=== PATIENT | female | born 1995 | race African-American/Black ===

== ENCOUNTER 2017-07-09 20:18 | Emergency (ER) | payer SELFPAY ==
[~2017-07-09] VITALS: Ht 172.7 cm; Wt 64.0 kg
[2017-07-09 20:40] VITALS: BP 134/72
--- NOTE | 2017-07-09 21:19 | ED.ADGEN ---
Adult General HPI HPI Patient is a 22-year-old woman, with no significant past medical history, who is after a test that was positive at home last week, states her last menstrual period was 02 June, who presents to the emergency department with a complaint of abdominal cramping. Patient states that she noted cramping yesterday, and then again today, states it was worse today, describes it as "delivery tech than a period", and is currently resolved. She denies any bleeding from the vagina, states she has had whitish discharge which began last week, she states that she used one dose of Monistat but continues to have discharge. Denies any gush of fluid, any passage of tissue, states she was last sexually active about a week ago. No concerns for sexually transmitted infections. No history of infection. She denies any urinary complaints, any back or flank pain , states he does have nausea occasionally, but no vomiting, no diarrhea, states the pain is located in her lower abdomen, and she feels a "pressure", in the upper abdomen at times. No swelling of the extremities, no rashes, no travel, recent surgery, history of DVT or PE, or rashes. No sick contacts or exposures. Last bowel movement was today and was normal. She has not yet established care with an [facility], has not yet started vitamins. Review of Systems Review of Systems Constitutional: Denies fever or chills [] Eyes: Denies change in visual acuity, redness, or eye pain [] HENT: Denies nasal congestion or sore throat [] Respiratory: Denies cough or shortness of breath [] Cardiovascular: No additional information not addressed in HPI [] GI: Denies vomiting, bloody stools or diarrhea, complaining of abdominal cramping over the past 2 days, intermittent, with nausea. [] : Denies dysuria or hematuria [] Musculoskeletal: Denies back pain or joint pain [] Integument: Denies rash or skin lesions [] Neurologic: Denies headache, focal weakness or sensory changes [] Endocrine: Denies polyuria or polydipsia [] Current Medications Current Medications Current Medications Medications (Trade) Dose Ordered Sig/Colette Start Time Stop Time Status Last Admin Dose Admin Ondansetron HCl (Zofran) 4 mg 1X ONCE 07/09/17 21:30 07/09/17 21:31 DC 07/09/17 21:30 4 MG Sodium Chloride 1,000 ml @ 1,000 mls/hr Q1H 07/09/17 21:30 07/09/17 22:29 DC 07/09/17 21:30 1,000 MLS/HR Allergies Allergies Allergies Coded Allergies Type Severity Reaction Last Updated Verified No Known Drug Allergies 07/09/17 No Physical Exam Physical Exam Constitutional: Well developed, well nourished, no acute distress, non-toxic appearance. [] HENT: Normocephalic, atraumatic, bilateral external ears normal, oropharynx moist, no oral exudates, nose normal. [] Eyes: PERRLA, EOMI, conjunctiva normal, no discharge. [] Neck: Normal range of motion, no tenderness, supple, no stridor. [] Cardiovascular:Heart rate regular rhythm, no murmur, S1, S2, rubs or gallops. [] Lungs & Thorax: Bilateral breath sounds clear to auscultation, no wheezing, rhonchi, rales. No chest wall crepitus or tenderness. [] Abdomen: Bowel sounds normal, soft, no tenderness, no rebound, rigidity, no guarding, no masses, no pulsatile masses. [] Skin: Warm, dry, no erythema, no rash. [] Back: No tenderness, no CVA tenderness. [] Extremities: No tenderness, no cyanosis, no clubbing, ROM intact, no edema. [] Neurologic: Alert and oriented X 3, normal motor function, normal sensory function, no focal deficits noted. [] Psychologic: Affect normal, judgement normal, mood normal. [] Pelvic examination: Patient with a normal-appearing external examination, bimanual examination reveals a closed os, which is nontender, no CMT, no adnexal tenderness or masses palpated, patient with moderate amount of thick white discharge noted on glove. Speculum examination performed revealing normal cervix, with small amount of white discharge. Specimens taken without issue. Current Patient Data Vital Signs Vital Signs Date Time Temp Pulse Resp B/P (MAP) Pulse Ox O2 Delivery O2 Flow Rate FiO2 07/09/17 20:40 98.2 102 20 100 Room Air Lab Results Laboratory Tests Test 07/09/17 20:40 07/09/17 21:07 07/09/17 21:26 Urine Collection Type Unknown Urine Color Straw Urine Clarity Clear Urine pH 7.0 Urine Specific [place] 1.020 Urine Protein Neg (NEG-TRACE) Urine Glucose (UA) Neg mg/dL (NEG) Urine Ketones (Stick) Neg mg/dL (NEG) Urine Blood Small (NEG) Urine Nitrite Neg (NEG) Urine Bilirubin Neg (NEG) Urine Urobilinogen Dipstick 0.2 mg/dL (0.2 mg/dL) Urine Leukocyte Esterase Neg (NEG) Urine RBC Occ /HPF (0-2) Urine WBC 1-4 /HPF (0-4) Urine Squamous Epithelial Cells Occ /LPF Urine Bacteria Few /HPF (0-FEW) POC Urine HCG, Qualitative hcg positive (Negative) White Blood Count 8.0 x10^3/uL (4.0-11.0) Red Blood Count 4.39 x10^6/uL (3.50-5.40) Hemoglobin 12.4 g/dL (12.0-15.5) Hematocrit 36.8 % (36.0-47.0) Mean Corpuscular Volume 84 fL (79-100) Mean Corpuscular Hemoglobin 28 pg (25-35) Mean Corpuscular Hemoglobin Concent 34 g/dL (31-37) Red Cell Distribution Width 13.1 % (11.5-14.5) Platelet Count 277 x10^3/uL (140-400) Neutrophils (%) (Auto) 67 % (31-73) Lymphocytes (%) (Auto) 27 % (24-48) Monocytes (%) (Auto) 6 % (0-9) Eosinophils (%) (Auto) 0 % (0-3) Basophils (%) (Auto) 1 % (0-3) Neutrophils # (Auto) 5.3 x10^3uL (1.8-7.7) Lymphocytes # (Auto) 2.2 x10^3/uL (1.0-4.8) Monocytes # (Auto) 0.4 x10^3/uL (0.0-1.1) Eosinophils # (Auto) 0.0 x10^3/uL (0.0-0.7) Basophils # (Auto) 0.0 x10^3/uL (0.0-0.2) Maternal Serum HCG Beta Subunit 435 mIU/mL (0-6) H Sodium Level 139 mmol/L (136-145) Potassium Level 3.3 mmol/L (3.5-5.1) L Chloride Level 103 mmol/L (98-107) Carbon Dioxide Level 27 mmol/L (21-32) Anion Gap 9 (6-14) Blood Urea Nitrogen 13 mg/dL (7-20) Creatinine 0.8 mg/dL (0.6-1.0) Estimated GFR (Cockcroft-Gault) 91.4 Glucose Level 89 mg/dL (70-99) Calcium Level 8.9 mg/dL (8.5-10.1) Total Bilirubin 0.3 mg/dL (0.2-1.0) Direct Bilirubin 0.1 mg/dL (0.0-0.2) Aspartate Amino Transferase (AST) 17 U/L (15-37) Alanine Aminotransferase (ALT) 24 U/L (14-59) Alkaline Phosphatase 57 U/L (46-116) Total Protein 8.3 g/dL (6.4-8.2) H Albumin 4.4 g/dL (3.4-5.0) Microbiology 07/09/17 Wet Prep - Final, Complete EKG EKG [] Radiology/Procedures Radiology/Procedures [][place] [id number] IMAGING REPORT Signed PATIENT: LISA TORRES ACCOUNT: [id number] : 1995 LOCATION: ER AGE: 22 SEX: F EXAM STATUS: PRE ER ORD. PHYSICIAN: ANDREEA MULLER DO REASON: Abd pain/ PROCEDURE: OB <14 WKS W/TV Examination: Obstetric ultrasound less than 14 weeks HISTORY: History of abdominal cramping, COMPARISON: None available FINDINGS: The uterus measures 8.8 x 6.9 x 5.4 cm. Endometrium measures 2.2 cm in thickness. The right ovary measures 4.0 x 2.2 x 1.9 cm. The left ovary measures 2.2 x 1.8 x 1.3 cm. Blood flow identified in the right and left ovaries. There is a small follicle or corpus luteal cyst identified in the left ovary. A intrauterine gestational sac is not identified. Small amount of free fluid identified in the pelvis. IMPRESSION: 1. No evidence of intrauterine gestational sac. Differential includes very early , failed first trimester or ectopic . An ectopic gestational sac is not identified. Correlate clinically. Follow-up serial quantitative beta-hCG levels and follow-up ultrasound is recommended. 2. Small amount of free fluid identified in the pelvis. 3. Small follicle or corpus luteal cyst identified in the left ovary. Electronically signed by: Sumit Schwartz MD (07/09/2017 11:41 PM) [facility] DICTATED AND SIGNED BY: SUMIT SCHWARTZ MD DATE: 07/09/17 2561 CC: ANDREEA MULLER DO; PCP,NO ~ Course & Med Decision Making Course & Med Decision Making Pertinent Labs and Imaging studies reviewed. (See chart for details) Due to complaints, laboratory studies, urinalysis, wet prep and ultrasound abdomen obtained. Patient's beta quantitative assay is 435, ultrasound reveals some fluid or cysts, small free fluid, at this time there is no visualized intrauterine , which is consistent with the patient's dates, therefore could be indicative of early which is not visualized, versus potential ectopic. Patient remains comfortable this time, results were discussed with her, importance of follow-up also discussed. Urinalysis reveals a few bacteria, based on patient's present status will treat prophylactically patient to follow-up with [facility], is already taking vitamins as stated. Wet prep is unremarkable. On reevaluation, patient remains asymptomatic resting comfortably. I did discuss beta Quant and ultrasound findings with patient in detail at bedside, also importance of taking vitamins, and antibiotics. Patient understands that this could be early , but also that an ectopic cannot be ruled out at this point. Patient voiced understanding and agreement, to contact Dr. Alba or an [facility] of her choosing on Tuesday to discuss ultrasound and beta quantitative results, to schedule prompt follow-up and expecting care. Patient also given prescription for Zofran to be used as needed. Patient voiced understanding and agreement with all plan and precautions as stated, discharged home in stable condition with significant other with plan as above. Final Impression Final Impression [] Problems: Dragon Disclaimer Dragon Disclaimer This electronic medical record was generated, in whole or in part, using a voice recognition dictation system. Departure: Impression: Primary Impression: Abdominal pain during in first trimester Additional Impression: Bacteriuria during Disposition: HOME, SELF-CARE Condition: IMPROVED Scripts Pnv With Ca,No.72/Iron,Carb/Fa ( PLUS IRON TABLET) 1 Each Tablet 1 TAB PO DAILY, #30 TAB 0 Refills Prov: ANDREEA MULLER DO 07/10/17 Cephalexin (KEFLEX) 500 Mg Capsule 1 CAP PO BID, #14 CAP Prov: ANDREEA MULLER DO 07/10/17 Ondansetron Hcl (ZOFRAN) 4 Mg Tablet 4 MG PO PRN Q8HRS Y for NAUSEA, #12 Prov: ANDREEA MULLER DO 07/10/17 ANDREEA MULLER DO Jul 09, 2017 21:19
[2017-07-09] MEDS ORDERED: ONDANSETRON PF 4 MG/2 ML VIAL. IV ONE (21:30)
[2017-07-09] MEDS ORDERED: IV NORMAL SALINE 1,000ML 1,000 ML IV SCH (21:30)
[2017-07-09 21:47] LABS: BASO % 1 % (0-3); EOS % 0 % (0-3); HEMATOCRIT 36.8 % (36.0-47.0); HEMOGLOBIN 12.4 g/dL (12.0-15.5); LYMPH # 2.2 x10^3/uL (1.0-4.8); LYMPH % 27 % (24-48); MEAN CORPUSCULAR HEMOGLOBIN 28 pg (25-35); MEAN CORPUSCULAR HGB CONC 34 g/dL (31-37); MEAN CORPUSCULAR VOLUME 84 fL (79-100); MONO # 0.4 x10^3/uL (0.0-1.1); MONO % 6 % (0-9); NEUT # 5.3 x10^3uL (1.8-7.7); NEUT % 67 % (31-73); PLATELET COUNT 277 x10^3/uL (140-400); RED BLOOD COUNT 4.39 x10^6/uL (3.50-5.40); RED CELL DISTRIBUTION WIDTH 13.1 % (11.5-14.5)
[2017-07-09 22:12] LABS: ALBUMIN 4.4 g/dL (3.4-5.0); CALCIUM 8.9 mg/dL (8.5-10.1); CREATININE 0.8 mg/dL (0.6-1.0); DIRECT BILIRUBIN 0.1 mg/dL (0.0-0.2); GFR 91.4; POTASSIUM 3.3 mmol/L (3.5-5.1); TOTAL BILIRUBIN 0.3 mg/dL (0.2-1.0); TOTAL PROTEIN 8.3 g/dL (6.4-8.2)
[2017-07-09 22:29] LABS: COLOR,URINE STRAW
[2017-07-09 22:30] LABS: BACTERIA,URINE FEW /HPF (0-FEW); BILIRUBIN,URINE NEG (NEG); CLARITY,URINE CLEAR; GLUCOSE,URINE NEG (NEG); NITRITE,URINE NEG (NEG); RBC,URINE OCC /HPF (0-2); SQUAMOUS EPITHELIAL CELL,UR OCC /LPF; UROBILINOGEN,URINE 0.2 mg/dL (0.2 mg/dL)
--- NOTE | 2017-07-09 23:44 | RAD ---
Examination: Obstetric ultrasound less than 14 weeks HISTORY: History of abdominal cramping, COMPARISON: None available FINDINGS: The uterus measures 8.8 x 6.9 x 5.4 cm. Endometrium measures 2.2 cm in thickness. The right ovary measures 4.0 x 2.2 x 1.9 cm. The left ovary measures 2.2 x 1.8 x 1.3 cm. Blood flow identified in the right and left ovaries. There is a small follicle or corpus luteal cyst identified in the left ovary. A intrauterine gestational sac is not identified. Small amount of free fluid identified in the pelvis. IMPRESSION: 1. No evidence of intrauterine gestational sac. Differential includes very early , failed first trimester or ectopic . An ectopic gestational sac is not identified. Correlate clinically. Follow-up serial quantitative beta-hCG levels and follow-up ultrasound is recommended. 2. Small amount of free fluid identified in the pelvis. 3. Small follicle or corpus luteal cyst identified in the left ovary. Electronically signed by: Sumit Schwartz MD (07/09/2017 11:41 PM) [facility]
[2017-07-10] MEDS ORDERED: CEPH-264 PO (00:26)
[2017-07-10] MEDS ORDERED: ONDA4TAB7 PO (00:26)
[2017-07-10] MEDS ORDERED: PNV1TABL34 PO (00:26)
[2017-07-11 22:09] LABS: CHLAMYDIA PROBE Negative (Negative)
== END 2017-07-10 00:30 | disposition home or self-care (01) ==
LOC: ER 20:18
DX: O23.90 Unspecified genitourinary tract infection in pregnancy, unspecified trimester (principal); R82.71 Bacteriuria
CPT/HCPCS: 36415; 76801; 76817; 80048; 80076; 81001; 81025; 84702; 85025; 87491; 87591; 96361; 96374; 99285; J2405; Q0111; J7030

== ENCOUNTER 2017-07-11 14:56 | Emergency (ER) | payer SELFPAY ==
[~2017-07-11 14:56] MED LIST: CEPH-264 PO; ONDA4TAB7 PO; PNV1TABL34 PO
[2017-07-11 15:18] VITALS: BP 119/73
--- NOTE | 2017-07-11 16:18 | PHYS DOC ---
Past History Past Medical History: No Pertinent History Past Surgical History: No Surgical History Alcohol Use: None Drug Use: None Adult General Chief Complaint Chief Complaint: VAGINAL BLEEDING HPI HPI Patient is a 22-year-old female who was seen here on 07/09 with the complaint of spotting with early , returns today. She did not have spotting yesterday but then today started with some dark brown discharge and light spotting on the toilet paper when she wiped. She's had no pain at all today. She had cramping 2 days ago but does not have cramping today. She has not had any episodes where she felt faint or had abdominal pain. When she was seen 2 days ago, she had a full evaluation including quantitative beta hCG of 435 and ultrasound that did not identify a gestational sac. She was given instructions to follow up with an OB doctor, but she needs to have her test results to qualify for Medicaid so she can make follow-up arrangements. Review of Systems Review of Systems Constitutional: Denies weakness or faintness GI: Denies abdominal pain : Denies dysuria or hematuria [] Allergies Allergies Allergies Coded Allergies Type Severity Reaction Last Updated Verified No Known Drug Allergies 07/09/17 No Physical Exam Physical Exam Constitutional: Well developed, well nourished, no acute distress, non-toxic appearance. Alert, mentating normally. HENT: Normocephalic, atraumatic, bilateral external ears normal, nose normal. [] Eyes: conjunctiva normal, no discharge. [] Neck: Normal range of motion, no stridor. [] Skin: Warm, dry, no erythema, no rash. [] Extremities: no cyanosis, no clubbing, ROM intact, no edema. [] Neurologic: Alert and oriented X 3, normal motor function, normal sensory function, no focal deficits noted. [] Current Patient Data Vital Signs Vital Signs Date Time Temp Pulse Resp B/P (MAP) Pulse Ox O2 Delivery O2 Flow Rate FiO2 07/11/17 15:18 98.4 94 16 100 Room Air Lab Results Laboratory Tests Test 07/11/17 15:34 Maternal Serum HCG Beta Subunit 725 mIU/mL (0-6) H EKG EKG [] Radiology/Procedures Radiology/Procedures [] Course & Med Decision Making Course & Med Decision Making Pertinent Labs and Imaging studies reviewed. (See chart for details) 22-year-old female who was seen less than 48 hours ago with a quantitative beta hCG of 435, returns today with some light spotting. Her repeat Quant today is 725, it has been less than 48 hours so it looks like that is going up like it should at this point. We discussed the possibilities including possible threatened miscarriage, very early , concern for possible ectopic. We discussed return precautions. I urged her to see an OB doctor as soon as she can. If she has heavy bleeding or pain or faintness she should return right away. I reassured Her that we would not expect to see anything yet on ultrasound. Patient is stable for discharge. See instructions for plan. [] Dragon Disclaimer Dragon Disclaimer This chart was dictated in whole or in part using Voice Recognition software in a busy, high-work load, and often noisy Emergency Department environment. It may contain unintended and wholly unrecognized errors or omissions. Departure Departure: Impression: Primary Impression: Threatened miscarriage in early Additional Impression: First trimester bleeding Disposition: HOME, SELF-CARE Condition: STABLE Referrals: PCP,NO (PCP) Patient Instructions: Threatened Miscarriage, [id number] Additional Instructions: Today, blood level of hormone was 725. Less than 48 hours ago it was 435. It has almost doubled so that is a sign of a healthy developing . We usually can't see anything on ultrasound until it is about 1999. We probably will not be able to see anything until at least Tuesday. If you continue to have spotting and light bleeding, your ultrasound could be rechecked on Tuesday. If you have heavy bleeding as heavy as a period for more than 2 hours, recheck in emergency. Call for follow-up appointment. You were given a phone number when you were here 2 days ago. Another choice is: [facility] [phone] Problem Qualifiers IVAN CHANEL MD Jul 11, 2017 16:18
== END 2017-07-11 16:39 | disposition home or self-care (01) ==
LOC: ER 14:56
DX: O20.0 Threatened abortion (principal); Z3A.00 Weeks of gestation of pregnancy not specified
CPT/HCPCS: 36415; 84702; 99283